=== PATIENT | male | born 1980 ===

== ENCOUNTER 2021-07-27 20:19 | Inpatient (IN) ==
[2021-07-27 21:12] LABS: Basophils # 0.1 K/mcL (0.0-0.2); Basophils % 0.4 %; Eosinophils % 0.1 %; Hematocrit 32.5 % (37.5-50.1); Hemoglobin 10.6 g/dL (12.9-16.9); Immature Granulocytes % 3.5 % (0-4); Lymphocytes # 0.9 K/mcL (0.6-4.6); Lymphocytes % 6.1 %; Mean Corpuscular HGB Conc 32.6 g/dL (31.6-35.5); Mean Corpuscular Hemoglobin 30.6 pg (28.0-33.3); Mean Corpuscular Volume 93.9 fL (83.0-100.0); Mean Platelet Volume 10.5 fL (9.4-12.4); Monocytes # 1.1 K/mcL (0.0-1.3); Neutrophils # 12.7 K/mcL (1.6-8.9); Platelet Count 312 K/mcL (140-400); Red Blood Count 3.46 M/mcL (4.19-5.50); Red Cell Distribution Width 18.6 % (11.5-14.5); Segmented Neutrophils % 82.9 %; White Blood Count 15.3 K/mcL (4.3-11.1)
[2021-07-27 21:21] LABS: INR 1.2
[2021-07-27 22:26] LABS: Alanine Aminotransferase 53 Units/L (7-52); Albumin 3.3 g/dL (3.5-5.7); Alkaline Phosphatase 176 Units/L (34-104); Aspartate Amino Transferase 24 Units/L (13-39); BUN/Creatinine Ratio 30 (6-26); Bilirubin,Direct 0.1 mg/dL (0.0-0.2); Bilirubin,Indirect 0.1 mg/dL (0.0-1.0); Bilirubin,Total 0.2 mg/dL (0.3-1.0); Blood Urea Nitrogen 21 mg/dL (6-20); Calcium 8.6 mg/dL (8.6-10.3); Carbon Dioxide 26 mEq/L (23-29); Chloride 101 mEq/L (98-107); Globulin 3.3 g/dL (2.4-3.5); Glucose 149 mg/dL (70-105); Magnesium 1.7 mg/dL (1.6-2.6); Osmolality,Calculated 288 (280-300); Potassium 3.9 mEq/L (3.5-5.1); Sodium 136 mEq/L (136-145); Total Protein 6.6 g/dL (6.4-8.9); eGFR For African Americans > 60 (> 60); eGFR For Non-African Americans > 60 (> 60)
[2021-07-27 22:51] LABS: Troponin I 0.08 ng/mL (< 0.04)
[2021-07-27 23:10] LABS: Amorphous Sediment,Urine Few per hpf (None-Few); Bilirubin,Urine Negative (Negative); Blood,Urine Moderate (Negative); Clarity,Urine Turbid (Clear); Color,Urine Yellow (Yellow); Glucose,Urine (UA) Normal (Normal); Ketones,Urine Negative (Negative); Leukocyte Esterase,Urine Negative (Negative); Nitrite,Urine Negative (Negative); Protein,Urine Trace mg/dL (Neg-Trace); RBC,Urine TNTC per hpf (0-3); Urobilinogen,Urine Normal (Normal)
[2021-07-27] MEDS ORDERED: cefTRIAXone 1,000 MG in Water for inj. (sterile) 10 ML IVP ONE (23:30)
[2021-07-28] MEDS ORDERED: Naloxone 0.4 MG/ML INJ IVP PRN (00:02)
[2021-07-28] MEDS ORDERED: *HR* HYDROcodone/Acet 5/325 mg TABLET PO PRN (00:02)
[2021-07-28] MEDS ORDERED: Acetaminophen 325 MG TABLET PO PRN ×2 (00:02→12:19)
[2021-07-28] MEDS ORDERED: Ondansetron 4 MG/2 ML VIAL IVP PRN (00:02)
[2021-07-28 02:44] LABS: Basophils # 0.1 K/mcL (0.0-0.2); Basophils % 0.4 %; Eosinophils % 0.2 %; Hematocrit 31.8 % (37.5-50.1); Hemoglobin 10.4 g/dL (12.9-16.9); Immature Granulocytes % 3.8 % (0-4); Lymphocytes # 1.5 K/mcL (0.6-4.6); Mean Corpuscular HGB Conc 32.7 g/dL (31.6-35.5); Mean Corpuscular Hemoglobin 30.8 pg (28.0-33.3); Mean Corpuscular Volume 94.1 fL (83.0-100.0); Mean Platelet Volume 10.5 fL (9.4-12.4); Monocytes # 1.4 K/mcL (0.0-1.3); Monocytes % 8.7 %; Neutrophils # 12.5 K/mcL (1.6-8.9); Platelet Count 290 K/mcL (140-400); Red Blood Count 3.38 M/mcL (4.19-5.50); Red Cell Distribution Width 18.6 % (11.5-14.5); Segmented Neutrophils % 77.9 %
[2021-07-28 03:13] LABS: Alanine Aminotransferase 54 Units/L (7-52); Albumin 3.1 g/dL (3.5-5.7); Albumin/Globulin Ratio 1.1 (1.1-2.2); Alkaline Phosphatase 169 Units/L (34-104); Aspartate Amino Transferase 31 Units/L (13-39); BUN/Creatinine Ratio 36 (6-26); Bilirubin,Total 0.2 mg/dL (0.3-1.0); Blood Urea Nitrogen 21 mg/dL (6-20); Calcium 8.4 mg/dL (8.6-10.3); Carbon Dioxide 24 mEq/L (23-29); Chloride 103 mEq/L (98-107); Globulin 2.9 g/dL (2.4-3.5); Glucose 97 mg/dL (70-105); Osmolality,Calculated 283 (280-300); Potassium 3.9 mEq/L (3.5-5.1); Sodium 135 mEq/L (136-145); eGFR For African Americans > 60 (> 60); eGFR For Non-African Americans > 60 (> 60)
[2021-07-28] MEDS ORDERED: *HR* Heparin 5,000 UNIT/ML VIAL IVP ONE (05:13)
[2021-07-28] MEDS ORDERED: *HR* Heparin 5,000 UNIT/ML VIAL IVP PRN ×2 (05:13)
[2021-07-28] MEDS ORDERED: Heparin 25,000UNIT/250ML 1/2NS 25,000 UNIT/250 ML IV.SOLN IVC SCH ×2 (05:15→05:30)
[2021-07-28] MEDS: Morphine Sulfate ER (12 HR) 30 MG TABLET.ER PO SCH ×2 (05:25→17:26)
[2021-07-28] MEDS: *HR* OxyCODONE Immed Rel 5 MG TABLET PO PRN ×5 (06:23→23:15)
[2021-07-28] MEDS ORDERED: 0.9 % Sodium Chloride 500 ML IVC ONE (08:49)
[2021-07-28] MEDS ORDERED: Lidocaine Viscous Oral Soln 15 ML SOLUTION MM PRN (08:49)
[2021-07-28] MEDS ORDERED: dexAMETHasone 4 MG TABLET PO SCH (09:00)
[2021-07-28] MEDS ORDERED: cefTRIAXone 1,000 MG in Water for inj. (sterile) 10 ML IVP SCH (09:00)
[2021-07-28] MEDS ORDERED: Apixaban 5 MG TABLET PO SCH (09:00)
[2021-07-28] MEDS ORDERED: *HR* Midazolam HCl 5 MG/5 ML VIAL IVP ONE ×2 (09:07→09:08)
[2021-07-28] MEDS: *HR* FentaNYL (PF) 100 MCG/2 ML VIAL IVP PRN ×4 (09:20→09:45)
[2021-07-28] MEDS: *HR* Midazolam HCl 5 MG/5 ML VIAL IVP PRN ×4 (09:20→09:45)
[2021-07-28] MEDS: Furosemide 20 MG TABLET PO SCH ×2 (10:52→17:26)
[2021-07-28] MEDS ORDERED: *HR* Alteplase (Cathflo) 2 MG VIAL IVP ONE ×2 (11:48→12:15)
[2021-07-28] MEDS: Cefepime HCl 2,000 MG in 0.9 % Sodium Chloride Mini Bag 100 ML IVPB SCH ×2 (17:25→23:15)
[2021-07-28 20:49] LABS: Adenovirus Not Detected (Not Detect); Bordetella Pertussis Not Detected (Not Detect); Chlamydophila pneumoniae Not Detected (Not Detect); Coronavirus 229E Not Detected (Not Detect); Coronavirus HKU1 Not Detected (Not Detect); Coronavirus NL63 Not Detected (Not Detect); Coronavirus OC43 Not Detected (Not Detect); Human Metapneumovirus Not Detected (Not Detect); Human Rhinovirus/Enterovirus Not Detected (Not Detect); Influenza A Subtype 2009 H1 Not Detected (Not Detect); Influenza B Not Detected (Not Detect); Mycoplasma pneumoniae Not Detected (Not Detect); Parainfluenza Virus 1 Not Detected (Not Detect); Parainfluenza Virus 2 Not Detected (Not Detect); Parainfluenza Virus 3 Not Detected (Not Detect); Parainfluenza Virus 4 Not Detected (Not Detect); Respiratory Syncytial Virus Not Detected (Not Detect); SARS-CoV-2 Not Detected (Not Detect)
[2021-07-29 00:29] VITALS: BP 145/92; PULSE 62; TEMP 98.5; O2SAT 96
[2021-08-01 01:16] LABS: A.galactomannan Ag Index 0.05
[2021-08-02 08:07] LABS: QuantiFERON Mitogen minus NIL 9.52 IU/mL
[2021-08-02 11:19] LABS: QuantiFERON NIL 0.01 IU/mL; QuantiFERON-TB Gold In-Tube NEGATIVE (Negative)
== END 2021-07-29 01:37 | disposition short-term general hospital (02) | DRG 193 ==
LOC: 2ANU 20:19 → EMEROOARM 20:19 → 2ANU 07-28 00:48
PROVIDERS: ADMIT Internal Medicine; ATTEND Internal Medicine